=== PATIENT | male | born 1995 | race Caucasian/White ===

== ENCOUNTER 2020-03-01 16:12 | Emergency (ER) | payer BC, SELFPAY ==
[2020-03-01 16:34] VITALS: BP 110/65; PULSE 64; RESP 18; TEMP 36.9; O2SAT 98; BMI 28.3
[2020-03-01 16:48] VITALS: BP 110/65; PULSE 64; RESP 18; TEMP 36.9; O2SAT 98
--- NOTE | 2020-03-01 16:52 | HMH.EDUTC ---
[facility] [place] Disposition Clinical Impression: Viral upper respiratory illness Disposition: Home, Self-Care Condition on Discharge: Good Instructions: Preventing the Spread of Coronavirus Discharge Instructions, Sore Throat, DI for Viral Syndrome Additional Instructions: *Monitor Temp, Over the counter Motrin or Tylenol as directed/as needed Tylenol every 4 hours and Motrin every 6 hours (as long as your family doctor has told you that you can take it) for fever or pain. and straight to ER if unable to lower temp less than 101.0 after medication given *Warm salt water gargles may help to soothe the throat *Throat Lozenges *Warm fluids like tea with honey may help to soothe the throat *Sleep elevated *Humidifier/Vaporizer *Flonase 2 sprays in each nostril daily but be aware that it may take 2-3 days before you notice improvement *Bromfed may cause drowsiness. Know how it effects you (your child) before driving, caring for small child, or sending your child to school. Not other antihistamines/allergy medications while taking bromfed Your throat swab was sent for culture. Those results are typically sent to your primary care. Be sure to follow up in 2-3 days with your family doctor/primary care physician if no improvement so they can review those result and treat if necessary. If you don?t have a primary care doctor, I recommend you get one but in the mean time, you will have to return to a walk in clinic Follow up IMMEDIATELY for new or worsening symptoms or no Noticeable improvement over the next 48-72 hours. 911 for difficulty breathing or swallowing You was tested for today for COVID19 your test result should be back in the next 24-48 hours, you may call to the [facility] tomorrow to see if your test results are back and the result [phone] You was given a handout with instructions for Self Quarantine and Self isolation for while you wait on test results and what to do if they are positive If you are positive the Health Dept will be contacting you also Prescriptions: Brompheniramine/Pseudoephed/Dm [Bromfed Dm Cough Syrup] 5 - 10 ml PO Q46H PRN #200 ml PRN Reason: Cough Transmission Status: Pending to [id number] Fluticasone Propionate [Flonase 50mcg nasal spray 16gm] 1 spr NS DAILY #1 bottle Transmission Status: Pending to [id number] Referrals: Mark Allen MD [Primary Care Provider] - As needed Forms: Work/School Release Medical Decision Making - Mateo Inquiry Pt receiving controlled substance: No Mateo was queried for this patient: No Vital Signs: 03/01/20 16:34 03/01/20 16:48 Temperature 98.4 F 98.4 F Temperature Source Oral Pulse Rate 64 Pulse Rate [Left] 64 Respiratory Rate 18 18 Blood Pressure 110/65 Blood Pressure [Right Arm] 110/65 Blood Pressure Mean [Right Arm] 80 Blood Pressure Source [Right Arm] Automatic Cuff Blood Pressure Position [Right Arm] Sitting 02 Sat by Pulse Oximetry 98 Oxygen Delivery Method Room Air Orders (Tests/Meds): ORDERS Category Date Time Status Covid-19 Nasal PCR Sendout [facility] 03/01/20 16:39 Ordered [facility] [place] HPI - General Stated complaint: sore throat cough aches weakness Time Seen by Provider: 03/01/20 16:52 Mode of Arrival: Ambulatory Source of Information: Patient Limitations: No Limitations Description of Symptoms (Recalled from Triage Doc. by RN): Sore throat, chills and body aches HEENT Symptoms (Recalled from RN notes): Yes Resp Symptoms (Recalled from RN notes): No Skin Symptoms (Recalled from RN notes): No MS Symptoms (Recalled from RN notes): Yes (body aches) Functional Status (Recalled from RN notes): stable - History of Present Illness Provider Complaint: Patient state that he woke up this morning not feeling well States that he has been having body aches, chills, cough and over all not feeling well State that earlier when he was eating he noticed his taste was off and food didnt have much taste and he become worr
[2020-03-01 20:29] LABS: UTC Influenza A Antigen Negative (Negative); UTC Strep Screen (Rapid) Negative (Negative)
[2020-03-01 20:30] LABS: UTC Influenza B Antigen Negative (Negative)
[2020-03-03 14:47] LABS: Covid-19 Nasal PCR Sendout Lex POSITIVE
--- NOTE | 2020-03-03 15:05 | PC.NURSE ---
PATIENT NOTIFIED OF POSITIVE COVID RESSULTS
== END 2020-03-01 17:17 | disposition home or self-care (01) ==
PROVIDERS: Emergency Provider Nurse Practitioner; PCP Family Medicine
DX: U07.1 COVID-19 (principal)
CPT/HCPCS: 87804; 87880; 99201; U0004

== ENCOUNTER 2021-02-03 03:25 | Emergency (ER) | payer BC, SELFPAY ==
[2021-02-03 03:42] VITALS: BP 151/85; PULSE 84; RESP 18; TEMP 36.8; O2SAT 97; BMI 23.7
--- NOTE | 2021-02-03 03:53 | CT_ITS ---
PROCEDURE INFORMATION: Exam: CT Abdomen And Pelvis With Contrast Exam date and time: 02/03/2021 3:53 AM Age: 25 years old Clinical indication: Abdominal pain; Localized; Left lower quadrant (llq); Patient HX: Llq pain next to belly button, unable to eat, weight loss TECHNIQUE: Imaging protocol: Computed tomography of the abdomen and pelvis with contrast. Radiation optimization: All CT scans at this facility use at least one of these dose optimization techniques: automated exposure control; mA and/or kV adjustment per patient size (includes targeted exams where dose is matched to clinical indication); or iterative reconstruction. Contrast material: ISOVUE; Contrast volume: 75 ml; Contrast route: IV; COMPARISON: No relevant prior studies available. FINDINGS: Liver: Normal. No mass. Gallbladder and bile ducts: Normal. No calcified stones. No ductal dilation. Pancreas: Normal. No ductal dilation. Spleen: Normal. No splenomegaly. Adrenal glands: Normal. No mass. Kidneys and ureters: Normal. No hydronephrosis. Stomach and bowel: Unremarkable. No obstruction. No mucosal thickening. Appendix: The appendix is normal. Intraperitoneal space: Unremarkable. No free air. No significant fluid collection. Vasculature: Unremarkable. No abdominal aortic aneurysm. Lymph nodes: A cluster of small lymph nodes are seen in the right lower quadrant mesentery. Urinary bladder: Unremarkable as visualized. Reproductive: Unremarkable as visualized. Bones/joints: Unremarkable. No acute fracture. Soft tissues: Unremarkable. IMPRESSION: There is a cluster of small right lower quadrant mesenteric lymph nodes consistent with mesenteric lymphadenitis. The appendix is normal. No other acute process identified.
[2021-02-03 04:09] LABS: Basophils % 0.3 % (0.1-2.0); Eosinophils # 0.1 K/mm3 (0.0-0.4); Eosinophils % 0.7 % (0.1-12.0); Hemoglobin 14.6 g/dL (14.1-18.0); Lymphocytes % 7.5 % (10-50); Mean Corpuscular HGB Conc 35.7 g/dL (31.8-35.4); Mean Corpuscular Hemoglobin 31.3 pg (27.0-31.2); Mean Corpuscular Volume 87.5 fl (80-94); Mean Platelet Volume 7.8 fl (7.4-10.4); Monocytes # 0.5 K/mm3 (0.1-1.0); Monocytes % 3.9 % (1.7-9.3); Neutrophils # 11.6 K/mm3 (1.8-7.8); Neutrophils % 87.6 % (37.0-80.0); Platelet Count 377 K/mm3 (142-424); Red Blood Count 4.69 M/mm3 (4.60-6.20); Red Cell Distribution Width 12.9 % (11.5-17.5); White Blood Count 13.2 K/mm3 (4.8-10.8)
[2021-02-03 04:13] LABS: Chloride 99 mmol/L (98-107); Potassium 3.9 mmoL/L (3.5-5.1); Sodium 139 mmol/L (136-145)
[2021-02-03 04:14] LABS: MANUAL DIFFERENTIAL MANUAL DIFFERENTIAL (MANUAL DIFF)
[2021-02-03 04:16] LABS: Alanine Aminotransferase 20 U/L (12-78); Albumin Level 4.3 g/dl (3.5-5.0); Albumin/Globulin Ratio 1.1 (1.1-1.8); Alkaline Phosphatase 68 U/L (38-126); Anion Gap 16.9 mEq/L (5-15); Aspartate Amino Transferase 31 U/L (17-59); Bilirubin,Total 1.6 mg/dl (0.2-1.3); Blood Urea Nitrogen 8 mg/dl (9-20); Carbon Dioxide 27 mmol/L (22.0-30.0); Creatinine Clearance Estimated 188 mL/min (50-200); Estimated Glomerular Filt Rate 139 ml/min (>60); GFR (African American) 168 ML/MIN (>60); Globulin 3.9 g/dL (1.3-3.2); Total Protein,Serum 8.2 g/dl (6.3-8.2)
[2021-02-03 04:17] LABS: Calcium 9.2 mg/dl (8.4-10.2); Glucose 112 mg/dl (74-100)
[2021-02-03 05:52] LABS: Eosinophils % 1 % (0-3); Lymphocytes % 10 % (10-50); Monocytes % 1 % (2-9); Neutrophils % 88 % (42-76); Platelet Estimate Normal; RBC Morphology Normal; Total Cells Counted 100
--- NOTE | 2021-02-03 05:54 | HMH.EDGENADL ---
ED Disposition Clinical Impression: Lymphadenitis Disposition: Home, Self-Care Condition on Discharge: Good Additional Instructions: Stay well-hydrated. Motrin/Tylenol as needed for aches and pains. Follow-up with your PCP later today. Referrals: Mark Allen MD [Primary Care Provider] - Time of Disposition: 06:25 - Critical Care Critical Care Time: No Attestation: On 02/03/21, the high probability of a clinically significant, sudden or life threatening deterioration of the following system(s) required my full and direct attention, intervention and personal management. The time I documented below is in addition to time spent performing reported procedures but includes the following listed in this critical care notation. Medical Decision Making - Medical Records Medical records reviewed: Yes: I reviewed the patient's medical records. - Mateo Inquiry Pt receiving controlled substance: No Vital Signs: 02/03/21 03:42 Temperature 98.2 F Temperature Source Oral Pulse Rate [Apical] 84 Respiratory Rate 18 Blood Pressure [Right Arm] 151/85 H Blood Pressure Mean [Right Arm] 107 Blood Pressure Source [Right Arm] Automatic Cuff Blood Pressure Position [Right Arm] Sitting 02 Sat by Pulse Oximetry 97 Oxygen Delivery Method Room Air - Lab Data Lab results reviewed: Yes: I reviewed the patient's lab results. Lab Results 02/03/21 04:00: WBC 13.2 H, RBC 4.69, Hgb 14.6, Hct 41.0 L, MCV 87.5, MCH 31.3 H, MCHC 35.7 H, RDW 12.9, Plt Count 377, MPV 7.8, Neut % (Auto) 87.6 H, Lymph % (Auto) 7.5 L, Esmeralda % (Auto) 3.9, Eos % (Auto) 0.7, Baso % (Auto) 0.3, Neut # (Auto) 11.6 H, Lymph # (Auto) 1.0, Esmeralda # (Auto) 0.5, Eos # (Auto) 0.1, Baso # (Auto) 0.0, Total Counted 100, Neutrophils % (Manual) 88 H, Lymphocytes % (Manual) 10, Monocytes % (Manual) 1 L, Eosinophils % (Manual) 1, Platelet Estimate Normal, RBC Morphology Normal 02/03/21 04:00: Sodium 139, Potassium 3.9, Chloride 99, Carbon Dioxide 27, Anion Gap 16.9 H, BUN 8 L, Creatinine 0.70, Estimated Creat Clear 188, Estimated GFR 139, Est GFR ( Amer) 168, Glucose 112 H, Calcium 9.2, Total Bilirubin 1.6 H, AST 31, ALT 20, Alkaline Phosphatase 68, Total Protein 8.2, Albumin 4.3, Globulin 3.9 H, Albumin/Globulin Ratio 1.1 Result diagrams: 02/03/21 04:00 02/03/21 04:00 Orders (Tests/Meds): ED MEDICATIONS Generic Name Dose Route Start Last Admin Trade Name Freq PRN Reason Stop Dose Admin Sodium Chloride 1,000 mls @ 999 mls/hr 02/03/21 04:15 Sod Chlor 0.9% 1000ml Bag IV 02/03/21 05:15 .Q1H1M ZOË Discontinued Medications Generic Name Dose Route Start Last Admin Trade Name Freq PRN Reason Stop Dose Admin Iopamidol 75 ml 02/03/21 04:21 02/03/21 04:22 Iopamidol-370 (76%);100ml Bottle IV 02/03/21 04:22 75 ml ONCE ONE Administration Sodium Chloride 10 ml 02/03/21 04:21 02/03/21 04:21 Sodium Chloride 0.9% 10ml Syr (Rad Only) IV 02/03/21 04:22 10 ml ONCE ONE Administration - CT Data CT Scan: Abdomen, Pelvis Time Received: 06:[address] Reviewed: Yes: I have reviewed the patient's CT results Preliminary Findings: Abnormal Findings Narrative: R side lymphnodes Medical Decision Narrative: 25yo M evaluated for abdominal pain. Patient no acute distress on initial evaluation. He walks in the emergency department without difficulty. Physical exam is completely unremarkable. Patient does have a mild leukocytosis and a bili of 1.6 on laboratory evaluation. Sent for CT of the abdomen pelvis with IV contrast. CT shows some abdominal lymphadenitis. No other findings are appreciated. Patient provided a copy of his CT report. Encouraged to follow-up with PCP later today. General Adult HPI - General Chief complaint: PAIN Stated complaint: poor appitite,fever,earache,weakness,body aches Time Seen by Provider: 02/03/21 03:45 Mode of Arrival: Ambulatory Limitations: No Limitations Description of Symptoms (Recalled from ER Triage Do
[2021-02-03 06:32] VITALS: BP 124/78; PULSE 75; RESP 18; TEMP 36.8; O2SAT 98
== END 2021-02-03 06:33 | disposition home or self-care (01) ==
PROVIDERS: Emergency Provider Family Medicine; PCP Family Medicine
DX: I88.9 Nonspecific lymphadenitis, unspecified (principal)
CPT/HCPCS: 74177; 80053; 85007; 85025; 96365; 99283; Q9967

== ENCOUNTER 2021-11-28 19:57 | Emergency (ER) | payer BC, SELFPAY ==
[2021-11-28 20:10] VITALS: BP 126/73; PULSE 89; RESP 18; TEMP 36.8; O2SAT 98; BMI 24.4
[2021-11-28 20:11] VITALS: BMI 24.4
--- NOTE | 2021-11-28 20:11 | XR_ITS ---
PROCEDURE INFORMATION: Exam: XR Left Hand Exam date and time: 11/28/2021 8:19 PM Age: 25 years old Clinical indication: Injury or trauma; Fall; Blunt trauma (contusions or hematomas); Hand; Left; Additional info: Injury while playing basketball, C/O pain around 4th metacarpal. TECHNIQUE: Imaging protocol: Radiologic exam of the Left hand. Views: 3 or more views. COMPARISON: CR XR WRIST LT MIN 3V 11/28/2021 8:17 PM FINDINGS: Bones/joints: Mildly displaced oblique fracture of the ring finger metacarpal diaphysis. Soft tissues: Normal. IMPRESSION: Mildly displaced oblique fracture of the ring finger metacarpal diaphysis.
--- NOTE | 2021-11-28 20:11 | XR_ITS ---
PROCEDURE INFORMATION: Exam: XR Left Forearm Exam date and time: 11/28/2021 8:21 PM Age: 25 years old Clinical indication: Injury or trauma; Fall; Blunt trauma (contusions or hematomas); Arm, lower and wrist and hand; Left; Additional info: Injury while playing basketball, C/O pain in left hand TECHNIQUE: Imaging protocol: Radiologic exam of the Left forearm. Views: 2 views. COMPARISON: CR XR HAND LT MIN 3V 11/28/2021 8:19 PM FINDINGS: Bones/joints: No acute fracture or dislocation. Soft tissues: Normal. IMPRESSION: No acute fracture or dislocation.
--- NOTE | 2021-11-28 20:11 | XR_ITS ---
PROCEDURE INFORMATION: Exam: XR Left Wrist Exam date and time: 11/28/2021 8:17 PM Age: 25 years old Clinical indication: Injury or trauma; Fall; Blunt trauma (contusions or hematomas); Wrist; Left; Additional info: Injury while playing basketball, C/O pain left hand TECHNIQUE: Imaging protocol: Radiologic exam of the Left wrist. Views: 3 or more views. COMPARISON: No relevant prior studies available. FINDINGS: Bones/joints: Mildly displaced oblique fracture of the ring finger metacarpal diaphysis. Soft tissues: Normal. IMPRESSION: Mildly displaced oblique fracture of the ring finger metacarpal diaphysis.
[2021-11-28 20:45] VITALS: PULSE 84; O2SAT 97
--- NOTE | 2021-11-28 20:47 | HMH.EDUPEXT ---
ED Disposition Clinical Impression: Hand fracture, left Qualifiers: Encounter type: initial encounter Fracture type: closed Qualified Code(s): S62.92XA - Unspecified fracture of left wrist and hand, initial encounter for closed fracture Disposition: Home, Self-Care Condition on Discharge: Good Instructions: DI for a Hand Fracture Additional Instructions: call ortho in am Referrals: Mare Nguyen APRN [Primary Care Provider] - - Critical Care Critical Care Time: No Attestation: On 11/28/21, the high probability of a clinically significant, sudden or life threatening deterioration of the following system(s) required my full and direct attention, intervention and personal management. The time I documented below is in addition to time spent performing reported procedures but includes the following listed in this critical care notation. Medical Decision Making - Medical Records Medical records reviewed: Yes: I reviewed the patient's medical records. - Mateo Inquiry Pt receiving controlled substance: No Vital Signs: 11/28/21 20:10 11/28/21 20:45 Temperature 98.2 F Temperature Source Oral Pulse Rate 84 Pulse Rate [Apical] 89 Respiratory Rate 18 Blood Pressure [Right Arm] 126/73 Blood Pressure Mean [Right Arm] 90 Blood Pressure Source [Right Arm] Automatic Cuff Blood Pressure Position [Right Arm] Sitting 02 Sat by Pulse Oximetry 98 97 Oxygen Delivery Method Room Air - Radiology Data #1 Image(s): Forearm, Wrist, Hand Image Reviewed: Yes I have reviewed radiologist's interpretation Preliminary Findings: Abnormal (hand fx ) Medical Decision Narrative: has lt hand fx and splint and refer to ortho Upper Extremity HPI - General Chief Complaint: Extremity Injury, Upper Stated Complaint: [id number]@1930 injured L Hand Time Seen by Provider: 11/28/21 20:30 Mode of Arrival: Ambulatory Source of Information: Patient, Spouse Limitations: No Limitations Description of Symptoms (Recalled from ER Triage Doc. by RN): Pt arrives pov. Per pt at approx 1930 he was playing baseball and when he slid he landed on his left hand injuring his left wrist. States the pain is a 6/10. - History of Present Illness HPI narrative: acute injury lt hand fell playing baseball complaint: injury to: left, wrist, hand Onset (ago): hour(s) Other Extremity Injury: Left: hand, wrist Other injuries: none Handedness: right Place: outdoors Severity: moderate Context: fall, sports-related injury Associated symptoms: denies other symptoms - Related Data Home Medications Medication Instructions Recorded Confirmed No Known Home Medications 11/28/21 11/28/21 Allergies Allergy/AdvReac Type Severity Reaction Status Date / Time No Known Allergies Allergy Verified 03/01/20 16:43 [facility] History - Hepatitis A Screen Attestation statement:: This patient has been screened for Hepatitis A risk factors. I have reviewed the patient's past medical history: Yes Medical History: Denies:: Cancer, Diabetes Mellitus Type 1, Diabetes Mellitus Type 2, Internal Pacemaker, MRSA Other Surgeries: Yes: No Previous Surgery. No: Pacemaker Amputation: No Fractures: No - Social History Smoking Status: Never smoker Tobacco Type: cigarettes Alcohol Intake: never Alcohol Intake Frequency:: holidays/special occasions only Substance Use Type: denies use Occupational Status: employed Family Hx:: No significant family history ROS Obtained: Yes All systems reviewed & no additional complaints - Constitutional Constitutional: Denies fever(s) - Eyes Eyes: Denies change in vision - ENT Ears, Nose, Mouth, and Throat: Denies facial pain - Cardiovascular Cardiovascular: Denies chest pain - Respiratory Respiratory: Denies shortness of breath - Gastrointestinal Gastrointestingal: Denies: abdominal pain - Genitourinary Male Genitourinary: Denies hematuria - Musculoskeletal Musculoskeletal: Reports as per H
[2021-11-28 21:40] VITALS: BP 124/75; PULSE 75; RESP 17; TEMP 36.7; O2SAT 98
== END 2021-11-28 21:42 | disposition home or self-care (01) ==
PROVIDERS: Emergency Provider Emergency Medicine; PCP Nurse Practitioner Family
DX: S62.92XA Unspecified fracture of left hand, initial encounter for closed fracture (principal); Y93.64 Activity, baseball
CPT/HCPCS: 29075; 73090; 73110; 73130; 99283

== ENCOUNTER → 2021-11-29 14:40 | Outpatient (CLI) | payer BC, SELFPAY ==
[2021-11-29 14:46] LABS: Coronavirus 19, PCR Not Detected (NotDetected); Influenza A, PCR Not Detected (NotDetected); Influenza B, PCR Not Detected (NotDetected)
[2021-11-29 15:32] LABS: Basophils # 0.1 K/mm3 (0-0.2); Basophils % 0.9 % (0.1-2.0); Eosinophils # 0.1 K/mm3 (0.0-0.4); Hematocrit 47.3 % (42.0-52.0); Hemoglobin 15.6 g/dL (14.1-18.0); Lymphocytes # 1.6 K/mm3 (0.7-4.5); Mean Corpuscular HGB Conc 32.9 g/dL (31.8-35.4); Mean Corpuscular Hemoglobin 30.7 pg (27.0-31.2); Mean Corpuscular Volume 93.2 fl (80-94); Mean Platelet Volume 7.4 fl (7.4-10.4); Monocytes # 0.5 K/mm3 (0.1-1.0); Monocytes % 7.9 % (1.7-9.3); Neutrophils % 64.2 % (37.0-80.0); Platelet Count 305 K/mm3 (142-424); Red Blood Count 5.07 M/mm3 (4.60-6.20); Red Cell Distribution Width 13.4 % (11.5-17.5); White Blood Count 6.2 K/mm3 (4.8-10.8)
[2021-11-29 15:56] LABS: Alanine Aminotransferase 34 U/L (12-78); Albumin Level 4.3 g/dl (3.5-5.0); Albumin/Globulin Ratio 1.7 (1.1-1.8); Alkaline Phosphatase 43 U/L (38-126); Anion Gap 10.3 mEq/L (5-15); Aspartate Amino Transferase 33 U/L (17-59); Bilirubin,Total 2.1 mg/dl (0.2-1.3); Blood Urea Nitrogen 12 mg/dl (9-20); Calcium 9.3 mg/dl (8.4-10.2); Carbon Dioxide 30 mmol/L (22.0-30.0); Chloride 104 mmol/L (98-107); Estimated Glomerular Filt Rate 118 ml/min (>60); GFR (African American) 143 ML/MIN (>60); Globulin 2.6 g/dL (1.3-3.2); Glucose 71 mg/dl (74-100); Potassium 4.3 mmoL/L (3.5-5.1); Sodium 140 mmol/L (136-145); Total Protein,Serum 6.9 g/dl (6.3-8.2)
== END ==
PROVIDERS: Physician Assistant Surgical; PCP Nurse Practitioner Family; Visit Provider Orthopaedic Surgery
DX: Z01.812 Encounter for preprocedural laboratory examination (principal); Z20.822 Contact with and (suspected) exposure to COVID-19; S62.325A Displaced fracture of shaft of fourth metacarpal bone, left hand, initial encounter for closed fracture
CPT/HCPCS: 36415; 80053; 85025; C9803; U0003; U0005

== ENCOUNTER 2021-11-30 09:44 | Day surgery (SDC) | payer BC, SELFPAY ==
[2021-11-30 10:04] VITALS: BP 131/62; PULSE 62; RESP 18; TEMP 36.3; O2SAT 100; BMI 24.4
--- NOTE | 2021-11-30 10:48 | HMH.ANESCL ---
[facility] Anesthesia Checklist - Patient Identification Patient Identification: Arm Band - Structural Data Admitted From: Home Planned Operative Procedure/s: ORIF Left 4th Metacarpal Fx Consent for Planned Operative Procedure(s) Verified: Yes Verified Documents: Surgical Consent, History and Physical - NPO Status Verified Time NPO: 00:00 - Additional verifications Anesthesia Reactions: No Hx Blood Transfusions: No Blood Transfusion Reaction: No - Airway Assessment C-Spine Mobility Assessed: Yes (mp2) TMJ Mobility Assessed: Yes Dentition: Good Dentition - Neurological Assessment Level of Consciousness: Awake, Alert - Anesthesia Plan Anesthesia Risk discussed: Yes Anesthesia Plan: Verified ASA Class: I Anesthesia Type: General w/block (Left Supraclavicular Block. Risks/benefits expained. Pt verbalized understanding) [facility] History I have reviewed the patient's past medical history: Yes Medical History: Denies:: Cancer, Diabetes Mellitus Type 1, Diabetes Mellitus Type 2, Internal Pacemaker, MRSA, Seizures *Have you ever received a pneumonia vaccine?: No *Have you received a flu vaccine this season?: No Other Medical History: Denies: Blood Transfusion Reaction Anesthesia experience/problems:: nac Other Surgeries: Yes: No Previous Surgery. No: Pacemaker Amputation: No Fractures: Yes (RT ANKLE) - *Social History Last grade of school completed: High school graduate Smoking Status: Current every day smoker Tobacco Type: e-cigarettes # Packs/Day (cigarettes): 0 Alcohol Intake: never Alcohol Intake Frequency:: holidays/special occasions only Substance Use Type: denies use *Occupational Status:: employed Housing: house Household Members: family *Travel in the last 8 weeks: None Family Hx:: No significant family history
--- NOTE | 2021-11-30 13:20 | XR_ITS ---
FINAL REPORT CLINICAL HISTORY: LEFT ORIF 4TH METACARPAL FINDINGS: 2 fluoroscopic spot films of the left hand were obtained. 0.19 seconds of fluoroscopy time was reported. IMPRESSION: Please see postoperative report. Reviewed, Interpreted and Dictated by Holger Alatorre III, MD Transcribed by Irena Burnett Authenticated and [facility]
[2021-11-30 13:49] VITALS: BP 105/49; PULSE 60; RESP 16; TEMP 36.1; O2SAT 98
[2021-11-30 13:54] VITALS: BP 109/52; PULSE 52; RESP 18; TEMP 36.1; O2SAT 97
[2021-11-30 14:09] VITALS: BP 114/60; PULSE 50; RESP 18; TEMP 36.1; O2SAT 97
[2021-11-30 14:30] VITALS: BP 125/66; PULSE 49; RESP 18; TEMP 36.1; O2SAT 99
--- NOTE | 2021-11-30 14:59 | HMH.OPNOTE ---
Date of procedure: 11/30/21 Pre-op Diagnosis:: Closed, displaced fracture shaft of fourth metacarpal, left hand Post-op Diagnosis:: Same Procedure performed:: Open reduction and internal fixation fourth metacarpal shaft fracture, left hand Surgeon:: Sameer Tyson MD Recruiter(s):: Dorota Garcia PA-C Anesthesia: MAC, regional (Supraclavicular nerve block) Estimated blood loss (mL): 2 Clinical Note:: Patient is a 26-year-old [id number] male, who sustained a closed, displaced fracture shaft of the fourth metacarpal of his left hand.? He sustained the injury when he fell down while playing baseball, on 11/28/2021. Following a detailed discussion about the management options including both nonsurgical and surgical with the patient and his mother opted for an open reduction and internal fixation.? Please refer to my office note for full details. Operative findings:: Closed, displaced fourth metacarpal shaft fracture of his left hand.? The fracture is well reduced and internally fixed in a stable fashion with 3 interfragmentary screws. Implants: Wilsey Hand plating system, 1.7 x 9 mm interfragmentary screws x3. Operative note:: On the day of the surgery the patient and his family were met in the preoperative area and patient was positively identified. I have again discussed the diagnosis, natural history and management options in detail including both nonsurgical and surgical. Given the displacement and shortening of the metacarpal, he opted for surgical remediation in the form of an open reduction and internal fixation with inter-fragmentary screws/plate and screws as appropriate at the time of surgery.? I have again discussed the details of the procedure, risks, benefits and alternatives. The complications discussed include but are not limited to infection, bleeding, injury to nerves and blood vessels, tendon injury and adhesions, nonunion, mal-union, delayed union, finger stiffness, complex regional pain syndrome, hardware failure, incomplete functional recovery, persistent pain, likely need for further surgery, complications of anesthesia including heart attack, stroke and even . We discussed about the likely failure of the surgery to accomplish the desired goals, decreased use of the hand, and loss of use of the hand, loss of the finger or hand. We also discussed about the possible need for further surgery for removal of the hardware if there are any problems. We have discussed nonsurgical alternatives including use of a splint, activity limitations, and early range of motion, elevation, icing and simple analgesics, in detail. If elected to treat non operatively, the fracture would heal in the displaced position with permanent malalignment/shortening. We indicated to the patient where the proposed incision would be made and also discussed the possibility of extending the incision as needed to accomplish an effective fracture reduction and fixation. The patient asked appropriate questions and all have been answered by me. I believe the patient is fully informed as to the goals of surgery, the potential risks and benefits. He wished to proceed with the surgery.? The operative site was marked and initialed by me. A physical examination was performed and the chart was updated. Patient understood the risks, agreed to proceed with surgery, and no guarantees or assurances were given or implied. The patient was brought to the operating room and positioned supine on the operating table.? All the bony prominences were appropriately padded.? A MAC anesthesia was administered by the contract manager.? Prior to that patient received a supraclavicular nerve block administered by the contract manager in the preoperative area. A well-padded tourniquet cuff was placed over the left upper arm.? The left hand was prepped and draped in the usual sterile fashion.? A time-out was performed as per the hospital protocol at which point the patient's identity, procedure, laterality an
== END 2021-11-30 14:32 | disposition home or self-care (01) ==
LOC: OR 09:45
PROVIDERS: PCP Nurse Practitioner Family; Visit Provider Orthopaedic Surgery
PROC: (CPT 26615; principal; 2021-11-30 11:00)
DX: S62.325A Displaced fracture of shaft of fourth metacarpal bone, left hand, initial encounter for closed fracture (principal); W01.0XXA Fall on same level from slipping, tripping and stumbling without subsequent striking against object, initial encounter; Y93.64 Activity, baseball
CPT/HCPCS: 26615; 73120; 76000; 96374; C1713; J2704

== ENCOUNTER → 2021-12-06 10:23 | Outpatient (CLI) | payer BC, SELFPAY ==
--- NOTE | 2021-12-06 10:30 | XR_ITS ---
FINAL REPORT CLINICAL HISTORY: left hand fx post op f/u COMPARISON: November 30, 2021 FINDINGS: LEFT HAND: Three views of the left hand were obtained. An oblique fracture is noted of the 4th metacarpal diaphysis. There is no evidence of callus formation. There are postoperative changes of the 4th metacarpal with 3 screws present. Soft tissues are unremarkable. IMPRESSION: Oblique fracture of the 4th metacarpal diaphysis with no evidence of callus formation. Postoperative changes as above. Reviewed, Interpreted and Dictated by Holger Alatorre III, MD Transcribed by Jhoana Ocampo Authenticated and [facility]
== END ==
PROVIDERS: PCP Nurse Practitioner Family; Visit Provider Physician Assistant Surgical
DX: S62.92XA Unspecified fracture of left hand, initial encounter for closed fracture (principal)
CPT/HCPCS: 73130

== ENCOUNTER 2021-12-27 12:56 | Outpatient (RCR) | payer BC, SELFPAY ==
--- NOTE | 2021-12-27 14:03 | HMH.OTOPEV ---
OT Inpatient Evaluation Rehab OT Outpatient Eval Start: 12/27/21 13:35 Freq: Status: Active Protocol: Document 12/27/21 13:35 KASIABERTRAM (Rec: 12/27/21 13:57 SHAKA [id number]) E-signed By Ember Galvez, OT Outpatient Therapy Subjective History Subjective History 26 years old male referred to skilled OP OT services for ORIF of fourth metacarpal shaft fx, left hand on 11/30/21 . He sustained the injury when he fell down while playing baseball on 11/28/21. Patient is currently 4 weeks out this date. AROM is WFL of the left wrist, MP, PIP and DIP's. Chief Complaint Pain,Weakness,Decreased Vessel Liner Strength Symptom Type Ache Symptoms Relieved By Nothing Symptoms Aggravated By Physical Activity Prior Functional Limitations None Current Functional Limitations Recreation Activity Symptom Description Intermittent Level of pain today (0-10) 0 Pain scale - at its best (0-10) 0 Pain scale - at its worst (0-10) 8 Wrist/Hand Eval Wrist Range of Motion Left Wrist Extension Active Range of Motion ( 60 degrees) Wrist Flexion Active Range of Motion ( 75 degrees) Wrist Radial Deviation Active Range of 15 Motion (degrees) Wrist Ulnar Deviation Active Range of 30 Motion (degrees) Forearm Supination Active Range of 90 Motion (degrees) Forearm Pronation Active Range of Motion 90 (degrees) Wrist Manual Muscle Testing Left Wrist Extension Strength Grade 4- Good- Wrist Flexion Strength Grade 4- Good- Wrist Radial Deviation Strength Grade 4- Good- Wrist Ulnar Deviation Strength Grade 4- Good- Forearm Supination Strength Grade 4- Good- Vessel Liner/Pinch Strength Right Vessel Liner Strength Measurement (lbs) 90 Left Vessel Liner Strength Measurement (lbs) 60 OT Outpatient Assessment Impairments Problems/Impairments Impaired Range of Motion, Impaired Strength,Subjective C /O Pain Prognosis Rehab Potential Good Clinical Impression Consistent with Diagnosis Yes Short Term Goals Number of Weeks 2 Increase Strength Yes: L hand manager programs strength: 65# Decrease Subjective C/O Pain Yes: 6/10 pain at worst Patient to be Ind w/ Advanced HEP Yes: Strengthening [employer] Application Developer Goals Number of Weeks 4 Increase Strength Yes: L manager programs strength: 70#
== END 2021-12-27 12:59 | disposition home or self-care (01) ==
LOC: OT 12:56
PROVIDERS: PCP Nurse Practitioner Family; Visit Provider Orthopaedic Surgery
DX: S62.325D Displaced fracture of shaft of fourth metacarpal bone, left hand, subsequent encounter for fracture with routine healing (principal)
CPT/HCPCS: 97165

== ENCOUNTER → 2022-01-09 09:34 | Outpatient (CLI) | payer BC, SELFPAY ==
--- NOTE | 2022-01-09 09:39 | XR_ITS ---
FINAL REPORT CLINICAL HISTORY: left hand fracture COMPARISON: December 06, 2021 FINDINGS: LEFT HAND Three views were obtained. There are 3 orthopedic screws securing a healing oblique fracture of the mid 4th metacarpal. There is increased callus formation. The fracture line does not extend to the joint. IMPRESSION: Healing 4th metacarpal fracture with postoperative change. Reviewed, Interpreted and Dictated by Govind Carrera MD Transcribed by Oswaldo Parson Authenticated and . [facility]
== END ==
PROVIDERS: PCP Nurse Practitioner Family; Visit Provider Physician Assistant Surgical
DX: S62.92XA Unspecified fracture of left hand, initial encounter for closed fracture (principal)
CPT/HCPCS: 73130

== ENCOUNTER 2022-03-06 16:46 | Emergency (ER) | payer BC, SELFPAY ==
--- NOTE | 2022-03-06 17:33 | XR_ITS ---
PROCEDURE INFORMATION: Exam: XR Chest Exam date and time: 03/06/2022 5:32 PM Age: 26 years old Clinical indication: Patient HX: Cough, patient states he had pneumonia last year. He vapes. TECHNIQUE: Imaging protocol: Radiologic exam of the chest. Views: 2 views. COMPARISON: CT ABDOMEN PELVIS W CON 02/03/2021 4:08 AM FINDINGS: Lungs: Unremarkable. No consolidation. Pleural spaces: Unremarkable. No pleural effusion. No pneumothorax. Heart/Mediastinum: Unremarkable. No cardiomegaly. Bones/joints: Unremarkable. IMPRESSION: Normal chest.
--- NOTE | 2022-03-06 17:34 | EXP.UTC ---
Discharge Plan Disposition Patient Disposition: Home, Self-Care Condition: Good Prescriptions Prescriptions: New azithromycin [Zithromax] 250 mg tablet 250 mg PO UD DOSE PK Qty: 6 0RF Rx Instructions: Take two (2) tablets today, then one (1) tablet days #2 thru #5 benzonatate [benzonatate] 100 mg capsule 100 mg PO TIDP PRN (Reason: Cough) Qty: 30 0RF No Action hydrocodone-acetaminophen 5-325 mg tablet 1 tab PO Q6H PRN (Reason: pain) Qty: 12 0RF Referrals Follow up/Referrals: Abby Yu MD [Primary Care Provider] - See instructions Activity Restrictions/Add. Instructions Additional Instructions/Restrictions: Drink plenty of fluids. Take tylenol or ibuprofen for pain or fever. Take the medications as directed. Follow up with your regular doctor. GO TO THE ER FOR ANY WORSENING SYMPTOMS Clinical Impressions Clinical Impression: Bronchitis, Acute viral syndrome Stand Alone Forms Stand Alone Forms: Work/School Release Instructions Patient Instructions: DI for Acute Bronchitis, DI for Viral Syndrome Discharge ED Provider: Tony Marques [facility] General Stated complaint: body aches, weakness Time Seen by Provider: 03/06/22 17:34 History of Present Illness Provider Complaint: He states that for the past 1 day he has had body aches, chills, and fever. Related Data Previous Rx's Medication Instructions Recorded hydrocodone 5 mg-acetaminophen 325 1 tab PO Q6H PRN pain #12 tabs 11/30/21 mg tablet azithromycin 250 mg tablet 250 mg PO UD DOSE PK #6 tabs 03/06/22 (Zithromax) benzonatate 100 mg capsule 100 mg PO TIDP PRN Cough #30 caps 03/06/22 Allergies Allergy/AdvReac Type Severity Reaction Status Date / Time No Known Allergies Allergy Verified 03/06/22 17:42 [facility] Social History Smoking Status: Current every day smoker tobacco type: e-cigarettes second hand exposure: No alcohol intake: never substance use type: denies use current occupational status: employed Travel in the last 8 weeks: None household members: family housing: house current occupation: [employer] current occupational exposures/hazards: No caffeine: No ROS Obtained: Yes All systems reviewed & no additional complaints except as documented Constitutional Constitutional: Reports chills and Reports fever(s) Eyes Eyes: Denies eye discharge ENT Ears, Nose, Mouth, and Throat: Reports as per HPI Cardiovascular Cardiovascular: Denies chest pain Respiratory Respiratory: Denies chest congestion and Reports cough Gastrointestinal Gastrointestingal: Reports nausea; Denies abdominal pain, constipation, cramping, diarrhea or vomiting Musculoskeletal Musculoskeletal: Denies arthralgias Integumentary/Breasts Skin/Breast: Denies rash Neurologic Neurologic: Denies paresthesias Physical Exam General General appearance: alert and in no apparent distress Head Head exam: atraumatic, normocephalic and normal inspection Eye Eye exam: Present normal appearance, PERRL and EOMI ENT ENT exam: Present normal exam, normal oropharynx, mucous membranes moist, TM's normal bilaterally and normal external ear exam Neck Neck exam: Present normal inspection, full ROM and trachea midline; Absent meningismus or lymphadenopathy Chest Chest inspection: Present normal inspection and symmetric chest wall rise; Absent tenderness Respiratory Respiratory exam: Present normal lung sounds bilaterally; Absent respiratory distress Cardiovascular Cardiovascular exam: Present regular rate and normal rhythm; Absent JVD Abdominal Exam Abdominal exam: Present soft and normal bowel sounds; Absent distention, tenderness or guarding Extremities Exam Extremities exam: Present normal inspection, full ROM and normal capillary refill; Absent calf tenderness Back Exam Back exam: Present normal inspection; Absent tenderness Neurological Exam Neurological exam: Pres
[2022-03-06 17:39] VITALS: BP 122/80; PULSE 84; RESP 16; TEMP 36.7; O2SAT 99; BMI 25.0
[2022-03-06 18:36] VITALS: BP 122/80; PULSE 84; RESP 16; TEMP 36.7
[2022-03-06 18:36] LABS: Adenovirus,PCR Not Detected (NotDetected); Bordetella Pertussis Not Detected (NotDetected); Chlamydophila Pneumoniae, PCR Not Detected (NotDetected); Coronavirus 19, PCR Not Detected (NotDetected); Coronavirus 229E Not Detected (NotDetected); Coronavirus NL63 Not Detected (NotDetected); Coronavirus OC43 Not Detected (NotDetected); Coronovirus HKU1,PCR Not Detected (NotDetected); Human Metapneumovirus Not Detected (NotDetected); Influenza A, PCR Not Detected (NotDetected); Influenza AH1, 2009 Not Detected (NotDetected); Influenza AH1, PCR Not Detected (NotDetected); Influenza AH3,PCR Not Detected (NotDetected); Influenza B, PCR Not Detected (NotDetected); Mycoplasma Pneumoniae, PCR Not Detected (NotDetected); Parainfluenza 1, PCR Not Detected (NotDetected); Parainfluenza 2, PCR Not Detected (NotDetected); Parainfluenza 3, PCR Not Detected (NotDetected); Parainfluenza 4, PCR Not Detected (NotDetected); Respiratory Syncytial Virus Not Detected (NotDetected); Rhinovirus/Enterovirus Not Detected (NotDetected)
== END 2022-03-06 18:36 | disposition home or self-care (01) ==
PROVIDERS: Emergency Provider Nurse Practitioner Family; PCP Family Medicine
DX: J20.9 Acute bronchitis, unspecified (principal)
CPT/HCPCS: 71046; 87581; 87632; 87798; 99212; C9803; G0463; U0003; U0005

== ENCOUNTER 2022-04-25 07:55 | Emergency (ER) | payer BC, SELFPAY ==
--- NOTE | 2022-04-25 07:55 | ECG_ITS ---
APPROVED REPORT Exam: Resting ECG HR:61 bpm ECG Measurements Heart Rate 61 AXES ID 161 P 39 QRSd 92 QRS 79 QT 365 T -31 QTc 368 Conclusion SINUS RHYTHM NONSPECIFIC ST & T-WAVE ABNORMALITY ABNORMAL ECG UNCONFIRMED REPORT Electronically signed by : Mark De Paz MD 04/26/2022 08:12:31
[2022-04-25 07:58] VITALS: BP 131/82; PULSE 62; RESP 18; TEMP 36.7; O2SAT 100; BMI 24.4
--- NOTE | 2022-04-25 08:01 | PC.NURSE ---
KALLI CAMARILLO at
--- NOTE | 2022-04-25 08:08 | XR_ITS ---
PROCEDURE INFORMATION: Exam: XR Chest Exam date and time: 04/25/2022 8:17 AM Age: 26 years old Clinical indication: Chest wall pain; Patient HX: Patient vapes; Additional info: Chest pain TECHNIQUE: Imaging protocol: Radiologic exam of the chest. Views: 2 views. COMPARISON: CR XR CHEST 2V 03/06/2022 5:32 PM FINDINGS: Lungs: Unremarkable. No consolidation. Pleural spaces: Unremarkable. No pleural effusion. No pneumothorax. Heart/Mediastinum: Unremarkable. No cardiomegaly. Bones/joints: Unremarkable. IMPRESSION: No acute findings.
[2022-04-25 08:16] LABS: Basophils # 0.1 K/mm3 (0-0.2); Basophils % 1.3 % (0.1-2.0); Eosinophils # 0.1 K/mm3 (0.0-0.4); Eosinophils % 1.6 % (0.1-12.0); Hematocrit 45.4 % (42.0-52.0); Hemoglobin 15.6 g/dL (14.1-18.0); Lymphocytes # 1.6 K/mm3 (0.7-4.5); Lymphocytes % 30.1 % (10-50); Mean Corpuscular HGB Conc 34.4 g/dL (31.8-35.4); Mean Corpuscular Hemoglobin 30.6 pg (27.0-31.2); Mean Corpuscular Volume 89.1 fl (80-94); Mean Platelet Volume 7.2 fl (7.4-10.4); Monocytes # 0.4 K/mm3 (0.1-1.0); Monocytes % 7.6 % (1.7-9.3); Neutrophils # 3.2 K/mm3 (1.8-7.8); Neutrophils % 59.4 % (37.0-80.0); Platelet Count 259 K/mm3 (142-424); Red Cell Distribution Width 13.3 % (11.5-17.5); White Blood Count 5.3 K/mm3 (4.8-10.8)
[2022-04-25 08:18] LABS: Chloride 104 mmol/L (98-107); Potassium 3.6 mmoL/L (3.5-5.1); Sodium 142 mmol/L (136-145)
--- NOTE | 2022-04-25 08:18 | HMH.EDGENADL ---
Discharge Plan Disposition Patient Disposition: Home, Self-Care Condition: Good Prescriptions Prescriptions: No Action hydrocodone-acetaminophen 5-325 mg tablet 1 tab PO Q6H PRN (Reason: pain) Qty: 12 0RF azithromycin [Zithromax] 250 mg tablet 250 mg PO UD DOSE PK Qty: 6 0RF Rx Instructions: Take two (2) tablets today, then one (1) tablet days #2 thru #5 benzonatate [benzonatate] 100 mg capsule 100 mg PO TIDP PRN (Reason: Cough) Qty: 30 0RF Referrals Follow up/Referrals: Mark Allen MD [Primary Care Provider] - See instructions Activity Restrictions/Add. Instructions Additional Instructions/Restrictions: You were evaluated in the emergency department today. Please wear your Holter monitor for the next 24 hours. Follow-up with your primary care provider regarding results. Return to the emergency department for any new or worsening symptoms. Avoid caffeine and make sure that you orally hydrate is much as possible. Clinical Impressions Clinical Impression: Heart palpitations Chest pain Qualifiers: Chest pain type: unspecified Qualified Code(s): R07.9 - Chest pain, unspecified Instructions Patient Instructions: DI for Ambulatory Cardiac Monitoring, DI for Atypical Chest Pain, DI for Palpitations Discharge ED Provider: Letty Nicole General Adult HPI General Chief complaint: Chest Pain Stated complaint: CP Time Seen by Provider: 04/25/22 07:59 Mode of Arrival: Ambulatory Source of Information: Patient Limitations: No Limitations Description of Symptoms (Recalled from ER Triage Doc. by RN): c/o chest pain for one to two month. STates that this morning he was walking into work and he felt like the whole middle area of chest was compressing, soa, started to lose eye sight and ears were ringing. STates that his symptoms have resolved and improved a lot at work when he went to the nurses station and was feeling pretty normal except for his chest still having a compression feeling. History of Present Illness HPI narrative: This patient is a 26-year-old male with no significant past medical history presenting to the emergency department for evaluation of chest pain. He states that he has intermittently had chest pain for the last month or 2. He had noted it to be associated with 3 workout initially, so he stopped using it. He stated that he recently started working out again 5 months ago. He states that when it happens, it is substernal over his chest, he can feel his heart racing, and he also feels short of breath. Today on his way to work, he felt compression in the center of his chest, felt as he was ringing, got short of air, and felt he was losing eyesight. He went to the nurses station at work and felt normal. At this time, he denies any complaints. Nothing seems to make his symptoms better or worse. Nothing seems to bring them on since he stopped using for work-up. No other concerns noted at this time. Related Data Previous Rx's Medication Instructions Recorded hydrocodone 5 mg-acetaminophen 325 1 tab PO Q6H PRN pain #12 tabs 11/30/21 mg tablet azithromycin 250 mg tablet 250 mg PO UD DOSE PK #6 tabs 03/06/22 (Zithromax) benzonatate 100 mg capsule 100 mg PO TIDP PRN Cough #30 caps 03/06/22 Allergies Allergy/AdvReac Type Severity Reaction Status Date / Time No Known Allergies Allergy Verified 03/06/22 17:42 [facility] Disclaimer: The information contained in this section may have been updated after the patient was seen, as this information can be updated by other users. Social History Smoking Status: Never smoker second hand exposure: No alcohol intake: never substance use type: denies use current occupational status: employed Travel in the last 8 weeks: None household members: family housing: house current occupation: [employer] current occupational exposures/hazards: No caffeine: No
[2022-04-25 08:21] LABS: Blood Urea Nitrogen 10 mg/dl (9-20); Creatinine Clearance Estimated 149 mL/min (50-200); Estimated Glomerular Filt Rate 103 ml/min (>60); GFR (African American) 124 ML/MIN (>60)
[2022-04-25 08:22] LABS: Anion Gap 10.6 mEq/L (5-15); Calcium 8.7 mg/dl (8.4-10.2); Carbon Dioxide 31 mmol/L (22.0-30.0); Glucose 72 mg/dl (74-100)
--- NOTE | 2022-04-25 08:24 | PC.NURSE ---
pt to radiology via wheelchair at this time
[2022-04-25 08:25] VITALS: PULSE 62
[2022-04-25 08:30] VITALS: BP 128/68; PULSE 63; RESP 16; O2SAT 99
[2022-04-25 08:51] LABS: Troponin I < 0.01 ng/ml (0.00-0.034)
[2022-04-25 09:00] VITALS: BP 120/72; PULSE 63; RESP 17; O2SAT 98
[2022-04-25 09:30] VITALS: BP 131/77; RESP 18; O2SAT 99
--- NOTE | 2022-04-25 09:34 | PC.NURSE ---
Respiratory at BS for halter monitor placement
[2022-04-25 10:10] VITALS: BP 137/83; PULSE 62; RESP 18; TEMP 36.7; O2SAT 99
== END 2022-04-25 10:13 | disposition home or self-care (01) ==
PROVIDERS: Emergency Provider Emergency Medicine; PCP Family Medicine
DX: R07.89 Other chest pain (principal); R00.2 Palpitations
CPT/HCPCS: 71046; 80048; 84484; 85025; 93005; 93225; 93226; 99285

== ENCOUNTER 2022-07-08 08:55 | Emergency (ER) | payer BC, SELFPAY ==
[2022-07-08 09:05] VITALS: BP 140/74; PULSE 84; RESP 19; TEMP 36.7; O2SAT 99; BMI 24.4
[2022-07-08 09:28] LABS: UTC Strep Screen (Rapid) Negative (Negative)
[2022-07-08 09:37] VITALS: BP 140/74; PULSE 84; RESP 19; TEMP 36.7; O2SAT 99
--- NOTE | 2022-07-08 09:53 | EXP.UTC ---
Discharge Plan Disposition Patient Disposition: Home, Self-Care Condition: Good Referrals Follow up/Referrals: Mark Allen MD [Primary Care Provider] - See instructions Clinical Impressions Clinical Impression: Viral upper respiratory illness Instructions Patient Instructions: DI for Viral Upper Respiratory Infection -- Adult Discharge ED Provider: Jackie ([facility])Lauren [facility] HPI General Stated complaint: Sore throat, bodyaches, weakness Mode of Arrival: Ambulatory Source of Information: Patient Limitations: No Limitations Time Seen by Provider: 07/08/22 09:53 Description of Symptoms (Recalled from Triage Doc. by RN): PATIENT C/O BODY ACHES, SORE THROAT AND NO ENERGY SINCE SATURDAY. RECENTLY EXPOSED TO STREP HEENT Symptoms (Recalled from RN notes): Yes Resp Symptoms (Recalled from RN notes): No Skin Symptoms (Recalled from RN notes): No MS Symptoms (Recalled from RN notes): No Functional Status (Recalled from RN notes): WNL History of Present Illness Provider Complaint: 26 yr old male presents for sore throat, body aches and tiredness for a few days. family has strep and wants checked Related Data Allergies Allergy/AdvReac Type Severity Reaction Status Date / Time No Known Allergies Allergy Verified 03/06/22 17:42 Worker's Comp Is this a Worker's Comp case?: No [facility] Disclaimer: The information contained in this section may have been updated after the patient was seen, as this information can be updated by other users. Social History , VETERINARY NURSE) Smoking Status: Never smoker second hand exposure: No alcohol intake: never substance use type: denies use current occupational status: employed Travel in the last 8 weeks: None household members: family housing: house current occupation: [employer] current occupational exposures/hazards: No caffeine: No ROS Obtained: Yes All systems reviewed & no additional complaints except as documented Constitutional Constitutional: Reports system reviewed and no additional complaints, except as documented and Reports as per HPI Eyes Eyes: Reports system reviewed and no additional complaints, except as documented and Reports as per HPI ENT Ears, Nose, Mouth, and Throat: Reports system reviewed and no additional complaints, except as documented, Reports as per HPI and Reports sore throat Cardiovascular Cardiovascular: Reports system reviewed and no additional complaints, except as documented Respiratory Respiratory: Reports system reviewed and no additional complaints, except as documented Musculoskeletal Musculoskeletal: Reports system reviewed and no additional complaints, except as documented Integumentary/Breasts Skin/Breast: Reports system reviewed and no additional complaints, except as documented Neurologic Neurologic: Reports system reviewed and no additional complaints, except as documented Endocrine Endocrine: Reports system reviewed and no additional complaints, except as documented Hematologic/Lymphatic Henatologic/Lymphatic: Reports system reviewed and no additional complaints, except as documented Allergic/Immunologic Allergic/Immunologic: Reports system reviewed and no additional complaints, except as documented Physical Exam General General appearance: alert and in no apparent distress Head Head exam: atraumatic, normocephalic and normal inspection Eye Eye exam: Present normal appearance and PERRL ENT ENT exam: Present normal exam, normal oropharynx, mucous membranes moist, TM's normal bilaterally and normal external ear exam Neck Neck exam: Present normal inspection, full ROM and trachea midline; Absent meningismus or lymphadenopathy Respiratory Respiratory exam: Present normal lung sounds bilaterally; Absent respiratory distress Cardiovascular Cardiovascular exam: Present regular rate and normal rhythm; Absent JVD Abdominal Exam Abdominal exam: Present soft and normal bowel
== END 2022-07-08 10:03 | disposition home or self-care (01) ==
PROVIDERS: Emergency Provider Nurse Practitioner Family; PCP Family Medicine
DX: J06.9 Acute upper respiratory infection, unspecified (principal); R53.83 Other fatigue; R07.0 Pain in throat; B34.9 Viral infection, unspecified
CPT/HCPCS: 87880; 99212; 99213; G0463

== ENCOUNTER 2024-11-06 13:31 | Outpatient (CLI) | payer BC, SELFPAY ==
--- OUTSIDE RECORDS SUMMARY | 2024-11-09 10:53 | XMS_ITS | Clinical Summary ---
Author Organization Healthcare Address [address] [place] [address] Care Team Providers Care Manager Cardiology Name Role Phone Pcp, No Primary Care Provider Unavailabl e Allergies No known active allergies Social History Tobacco Use Types Packs/Day Years Used Date Smoking Tobacco: Never Assessed Sex and Gender Information Value Date Recorded Sex Assigned at Not on file Legal Sex Male 8:13 PM EDT Gender Identity Not on file Sexual Orientation Not on file Last Filed Vital Signs Vital Sign Reading Time Taken Comments Blood Pressure 122/73 02/03/2021 6:45 PM EDT Pulse 84 02/03/2021 6:45 PM EDT Temperature 36.7 C (98.1 F) 02/03/2021 6:45 PM EDT Respiratory Rate 16 02/03/2021 6:45 PM EDT Oxygen Saturation 97% 02/03/2021 6:45 PM EDT Inhaled Oxygen Concentration - - Weight - - Height - - Body Mass Index - - Plan of Treatment Health Maintenance Due Date Last Done Comments [facility]-Depression Screening 1996 [facility]-Infant/Child/Adol SDOH Screenings 1996 [facility]-Varicella Vaccines (1 of 2 - 13+ 2-dose series) 2009 HPV Vaccines (1 - Male 3-dose series) 11/30/2011 [facility]- SDOH Screenings 2014 [facility]-Adult SDOH Screenings 2014 [facility]-DTaP,Tdap,and Td Vaccines (1 - Tdap) 11/30/2015 [facility]-Hepatitis B Vaccines (1 of 3 - 19+ 3-dose series) 11/30/2015 [id number] Vaccine (3 - season) 2023 05/18/2020, 04/18/2020 [facility]-Influenza Vaccine (#1) 2024 02/20/2016 [facility]-Zoster Vaccines (1 of 2) 2046 [facility]-Hepatitis A Vaccines Aged Out 04/08/2018 No longer eligible based on patient's age to complete this topic [facility]-HIB Vaccines Aged Out No longer e ligible based on patient's age to complete this topic [facility]-IPV Vaccines Aged Out No longer e ligible based on patient's age to complete this topic [facility]-Pneumococcal Vaccine: Pediatrics (0 to 5 Years) and At-Risk Patients (6 to 49 Years) Aged Out No longer eligible b ased on patient's age to complete this topic [facility]-Rotavirus Vaccines Aged Out No lo nger eligible based on patient's age to complete this topic Care Teams Manager Cardiology Relationship Specialty Start Date End Date Pcp, No [address] [place] [address] PCP - General 02/03/21
== END 2024-11-06 23:59 | disposition home or self-care (01) ==
LOC: LAB.DROPOF 11-09 10:47
PROVIDERS: PCP Internal Medicine; Visit Provider Internal Medicine
DX: N34.2 Other urethritis (principal)
CPT/HCPCS: 87491; 87591; 87661